=== PATIENT | male | born 1945 ===

== ENCOUNTER 2018-04-08 06:14 | Day surgery (SDC) | payer MEDICARE ==
[2018-04-08 06:55] VITALS: BMI 22.7
[2018-04-08] MEDS ORDERED: Propofol 10 mg/ml Inj (20 ML) ONE (07:56)
[2018-04-08] MEDS ORDERED: Phenylephrine 10 mg/ml Inj ONE (07:57)
[2018-04-08 08:41] VITALS: TEMP 98; O2SAT 99
[2018-04-08] MEDS ORDERED: Lactated Ringer's 1,000 ML IV SCH (08:45)
[2018-04-08 09:46] VITALS: BP 166/88; PULSE 68; RESP 14
== END 2018-04-08 10:10 | disposition home or self-care (01) ==
LOC: ENDO 06:14
PROVIDERS: ATTEND Specialist
DX: Z12.11 Encounter for screening for malignant neoplasm of colon (principal); C18.7 Malignant neoplasm of sigmoid colon; K64.8 Other hemorrhoids; K22.10 Ulcer of esophagus without bleeding; K44.9 Diaphragmatic hernia without obstruction or gangrene; E11.9 Type 2 diabetes mellitus without complications
CPT/HCPCS: 45380; 82948; 88305; J2001; J2370; J2704; J7040; J7120

== ENCOUNTER 2018-05-28 06:30 | Inpatient (IN) | payer MEDICARE ==
[2018-05-28] MEDS ORDERED: Propofol 10 mg/ml Inj (20 ML) ONE (07:30)
[2018-05-28] MEDS ORDERED: Rocuronium 10 mg/ml (5 ml) ONE ×2 (07:30→09:15)
[2018-05-28] MEDS ORDERED: Midazolam 2 MG/2 ML VIAL ONE (07:30)
--- NOTE | 2018-05-28 07:48 | CP.PCM.PN ---
Subjective - Date & Time of Evaluation Date of Evaluation: 05/28/18 Time of Evaluation: 07:15 - Subjective Subjective: Patient seen and examined at same day surgery. After obtaining surgical consent and explaining benefits and risks of surgery patient explicitly stated he refuses any blood products to be transfused. Patient stated "even if it means the difference between life or I refuse the transfusion of any kind of blood product". Patient wants to go forward with surgery, but does not want any blood transfusions. Objective - Vital Signs/Intake and Output Vital Signs (last 24 hours): Temp Pulse Resp BP Pulse Ox 98.3 F 78 18 186/98 H 98 05/28/18 06:45 05/28/18 06:45 05/28/18 06:45 05/28/18 06:45 05/28/18 06:45
[2018-05-28] MEDS ORDERED: Bupivacaine 0.5% 50 ML IJ ONE (08:00)
[2018-05-28] MEDS ORDERED: CeFAZolin 1 gm in NS 100ml IVPB ONE (08:30)
[2018-05-28] MEDS ORDERED: metroNIDAZOLE IV 500 mg/100 ml 500 MG/100 ML BAG ONE (08:33)
[2018-05-28] MEDS ORDERED: MetroNIDAZOLE 500 mg/100 ml IVPB ONE (08:40)
[2018-05-28] MEDS ORDERED: ePHEDrine 50 mg/ml Inj ONE (09:15)
[2018-05-28] MEDS ORDERED: Neostigmine Methylsulfate 3mg/3ml Syringe IV ONE (09:15)
[2018-05-28] MEDS ORDERED: Bupivacaine 0.25% 50 ML INJ IJ ONE (09:37)
[2018-05-28] MEDS ORDERED: Labetalol 5mg/ml (4ml) ONE (09:59)
--- NOTE | 2018-05-28 10:42 | PCM.SURG1 ---
Surgeon's Initial Post Op Note - Surgeon's Notes Surgeon: Dr. Howell Boom Master: Dr. Moralez PGY3, Dr. Ordaz PGY2 Type of Anesthesia: General Endo Pre-Operative Diagnosis: sigmoid CA Operative Findings: see operative report Post-Operative Diagnosis: see operative report Operation Performed: open left hemicolectomy with primary colo-colonic side to side anastomoses Specimen/Specimens Removed: sigmoid colon. peritoneal node Estimated Blood Loss: EBL {In ML}: 30 Blood Products Given: N/A Drains Used: No Drains Post-Op Condition: Good Date of Surgery/Procedure: 05/28/18 Time of Surgery/Procedure: 08:30
[2018-05-28] MEDS ORDERED: HYDROmorphone 0.5 mg/0.5 ml ISec IVP PRN (10:43)
[2018-05-28] MEDS ORDERED: Morphine 2 mg/ml ISec IVP PRN (10:44)
[2018-05-28] MEDS ORDERED: Lactated Ringer's 1,000 ML IV SCH (10:45)
[2018-05-28] MEDS ORDERED: Dextrose 50% SYRINGE Inj (50 ml) IV PRN (10:45)
[2018-05-28] MEDS ORDERED: Morphine 2 mg/ml ISec IVP ONE (11:25)
[2018-05-28] MEDS ORDERED: Morphine 4 mg/ml ISec ONE (11:29)
[2018-05-28] MEDS: Insulin Reg-MEDIUM-Coverage SC SCH ×2 (13:19→17:33)
[2018-05-28] MEDS: Lactated Ringer's 1,000 ML IV SCH (15:30)
[2018-05-28] MEDS ORDERED: ceFAZolin 1 gm in NS 1 GM/100 ML BAG IVPB ONE (16:00)
[2018-05-28] MEDS ORDERED: metroNIDAZOLE IV 500 mg/100 ml 500 MG/100 ML BAG IVPB ONE (16:00)
[2018-05-28] MEDS ORDERED: Influenza Vaccine 60 mcg/0.5 mL SYR (4YR UP) IM ONE (21:34)
[2018-05-28] MEDS ORDERED: Pneumococcal 23-Valent Vaccine IM ONE (21:34)
[2018-05-29] MEDS: Oxycodone/Acetaminophen 5/325 mg Tab PO PRN ×2 (04:07→22:37)
[2018-05-29 07:20] LABS: GRAN # 8.29 (1.4-6.5); HEMOGLOBIN 11.3 g/dL (14.0-18.0); LYMPH # 1.3 (1.2-3.4); LYMPH % 12.3 % (22.0-35.0); MEAN CORPUSCULAR HEMOGLOBIN 29.7 pg (25.0-35.0); MEAN CORPUSCULAR HGB CONC 33.3 g/dl (31.0-37.0); MEAN PLATELET VOLUME 9.3 fl (7.0-11.0); MONO % 9.7 % (1.0-6.0); RBC 3.81 10^6/uL (3.5-6.1); RED CELL DISTRIBUTION WIDTH 12.9 % (11.5-14.5); WHITE BLOOD COUNT 10.6 10^3/uL (4.5-11.0)
--- NOTE | 2018-05-29 07:56 | CP.PCM.PN ---
Subjective - Date & Time of Evaluation Date of Evaluation: 05/29/18 Time of Evaluation: 06:30 - Subjective Subjective: Patient seen and examined. No acute events over night. Tolerating liquid diet. Ambulating. Objective - Vital Signs/Intake and Output Vital Signs (last 24 hours): Temp Pulse Resp BP Pulse Ox 99.4 F 105 H 18 141/80 96 05/28/18 22:40 05/28/18 22:40 05/28/18 22:40 05/28/18 22:40 05/28/18 22:40 Intake and Output: 05/29/18 05/29/18 06:59 18:59 Intake Total 680 Output Total 1600 Balance -920 - Medications Medications: Current Medications Atorvastatin Calcium (Lipitor) 20 mg PO DAILY [facility] Dextrose (Dextrose 50% Inj) 0 ml IV STAT PRN; Protocol PRN Reason: Hypoglycemia Protocol Enoxaparin Sodium (Lovenox) 40 mg SC DAILY [facility]; Protocol Lactated Ringer's (Lactated Ringer's) 1,000 mls @ 75 mls/hr IV .[id number] [facility] Last Admin: 05/28/18 15:30 Dose: 75 mls/hr Insulin Human Regular (Humulin R Med) 0 units SC ACHS [facility]; Protocol Last Admin: 05/28/18 17:33 Dose: 8 units Metoclopramide HCl (Reglan) 10 mg IV ONCE PRN PRN Reason: Nausea/Vomiting Oxycodone/Acetaminophen (Percocet 5/325 Mg Tab) 1 tab PO Q4H PRN PRN Reason: Pain, moderate (4-7) Stop: 05/31/18 10:44 Last Admin: 05/29/18 04:07 Dose: 1 tab Ramipril (Altace) 2.5 mg PO DAILY [facility] - Labs Labs: 05/29/18 06:30 - Constitutional Appears: No Acute Distress - Head Exam Head Exam: NORMOCEPHALIC - Eye Exam Eye Exam: EOMI, Normal appearance - ENT Exam ENT Exam: Mucous Membranes Moist - Respiratory Exam Respiratory Exam: NORMAL BREATHING PATTERN - Cardiovascular Exam Cardiovascular Exam: +S1, +S2 - GI/Abdominal Exam GI & Abdominal Exam: Soft, Tenderness. absent: Distended, Firm, Rigid, Rebound Additional comments: mild tenderness over incision - Neurological Exam Neurological Exam: Alert, Awake, Oriented x3 - Psychiatric Exam Psychiatric exam: Normal Mood - Skin Skin Exam: Dry, Intact, Warm Assessment and Plan - Assessment and Plan (Free Text) Assessment: 72M s/p left hemicolectomy POD1 Plan: Full liquid diet ADAT OOB to chair Encourage ambulation PO analgesia prn DVT ppx D/w Dr. Dante Heath PGY3
[2018-05-29 07:57] LABS: BLOOD UREA NITROGEN 11 mg/dL (7-21); CALCIUM 8.9 mg/dL (8.4-10.5); GFR NON-AFRICAN AMERICAN > 60
--- NOTE | 2018-05-29 08:27 | OP ---
PROCEDURE DATE: 05/28/2018 PROCEDURE DONE: Left hemicolectomy with coloproctostomy anastomosis done primarily. SURGEON: Niko Howell MD MAIL CARRIER AND CLERK: Blanco Moralez DO INDICATIONS: This is a 72-year-old male who was found to have carcinoma of the sigmoid colon and elective resection was indicated. DESCRIPTION OF PROCEDURE: This patient was placed in the supine position and general endotracheal anesthesia was induced. Preoperative antibiotics were given. Lopez catheter and sequential pneumatic compression devices were placed. The abdomen was prepped and draped in the usual sterile fashion. A time-out was completed by identifying correct patient, procedure, site, positioning prior to beginning the procedure. A vertical midline incision was made from just below the umbilicus to just above the pubis. This was deepened through the subcutaneous tissues, and hemostasis was achieved with Bovie electrocautery. The linea alba was identified and incised, and the peritoneal cavity was entered. The patient was repositioned in a slight Trendelenburg position. The abdomen was then explored. A mass was palpated along the sigmoid colon. The tattoo portion that was done via the colonoscopy was re-visualized and palpated. The liver omentum and peritoneum were inspected for evidence of metastatic disease. Metastatic disease was not noted; however of note, there was presence of peritoneal node which was grasped via Allis clamps and resected via electrocautery and was sent for pathology. The descending colon was then inspected and retracted medially using a moist towel and self-retaining retractor. Using electrocautery as well as Metzenbaum scissors, the colon was free from its peritoneal attachments along the line of Toldt. The left ureter was identified and protected. Attention was then turned to mobilizing the left colon. The peritoneum covering was dissected via sharp dissection with Metzenbaum scissors. Once the left colon was mobilized, the bowel was then divided with a linear cutting stapler. The peritoneum on the medial aspect of the mesentery was then scored with electrocautery, and the vessels were ligated via cautery. The dissection proceeded to the inferior mesenteric artery which was identified and taken with electrocautery. The location of the left ureter was confirmed prior to dividing the inferior mesenteric artery. Dissection continued to sigmoid artery which was divided and cauterized. The rectosigmoid junction was mobilized and loose tissues and the presacral space were in good condition. The rectosigmoid junction was identified by explaining of the teniae coli at the level of the sacral promontory. The bowel was then transected at the junction using a SAM-60 as well as TA-55 stapler. The specimen was removed and sent to Pathology. Hemostasis was checked in the operative field. The two ends of the bowel were checked and found to be viable with excellent blood supply. Afterwards, the rectal stump and the proximal portion of the descending colon were brought side to side where an Endo SAM was used to create a primary anastomosis as well as the use of a TA stapler to close defect. The anastomosis site appeared patent, and the colonic tissue and right tissues appeared viable. Afterwards, the abdomen was thoroughly irrigated. There were no signs of free bubbles extending from the freshly made anastomosis. Afterwards, the appendix was noted to be lying proximal to the anastomosis at which point a decision was made to remove the appendix. The appendiceal mesentery was ligated, and the appendix was removed via TA 55 stapler. Afterwards, the abdomen was thoroughly irrigated, and the fluid was suctioned out. We then proceeded to close the abdomen with a double looped PDS suture. The abdominal fascia was approximated beautifully, and no complications were noted. Hemostasis was achieved both intra-abdominally as well as superficially at the site of an initial incision. Afterwards, the subcutaneous tissues were irrigated. Placement of On-Q catheters was made. The abdominal skin incision was closed using bryn. The patient was successfully extubated in the operating room and transferred to PACU with no complications. Blanco Moralez DO Niko Howell MD
[2018-05-29] MEDS: Insulin Reg-MEDIUM-Coverage SC SCH ×3 (08:30→19:22)
[2018-05-29] MEDS: Enoxaparin 40 mg Syringe SC SCH (09:48)
[2018-05-29] MEDS: Lactated Ringer's 1,000 ML IV SCH (11:36)
[2018-05-29] MEDS ORDERED: Bupivacaine 0.25% 50 ML INJ IJ ONE (16:05)
[2018-05-30] MEDS: Insulin Reg-MEDIUM-Coverage SC SCH ×4 (06:32→17:05)
[2018-05-30 08:13] VITALS: PULSE 96; RESP 18; TEMP 98.6; O2SAT 95
[2018-05-30 08:46] LABS: BASO # 0.01 K/mm3 (0.0-2.0); BASO % 0.1 % (0.0-3.0); EOS % 0.2 % (1.5-5.0); GRAN # 6.21 (1.4-6.5); GRAN % 70.9 % (50.0-68.0); HEMOGLOBIN 12.3 g/dL (14.0-18.0); LYMPH # 1.5 (1.2-3.4); LYMPH % 16.6 % (22.0-35.0); MEAN CELL VOLUME 90.6 fl (80.0-105.0); MEAN CORPUSCULAR HEMOGLOBIN 30.4 pg (25.0-35.0); MEAN CORPUSCULAR HGB CONC 33.6 g/dl (31.0-37.0); MEAN PLATELET VOLUME 9.8 fl (7.0-11.0); MONO # 1.1 (0.1-0.6); MONO % 12.2 % (1.0-6.0); RBC 4.04 10^6/uL (3.5-6.1); RED CELL DISTRIBUTION WIDTH 13.1 % (11.5-14.5); WHITE BLOOD COUNT 8.8 10^3/uL (4.5-11.0)
[2018-05-30] MEDS: Enoxaparin 40 mg Syringe SC SCH (09:05)
[2018-05-30 09:08] VITALS: BP 136/83
[2018-05-30 09:30] LABS: BLOOD UREA NITROGEN 13 mg/dL (7-21); CALCIUM 9.4 mg/dL (8.4-10.5); GFR NON-AFRICAN AMERICAN > 60
--- NOTE | 2018-05-30 13:36 | CP.PCM.DIS ---
Provider - Provider Date of Admission: 05/28/18 10:40 Attending physician: Niko Howell MD Primary care physician: Nate Clifford MD Consults: 05/28/18 10:48 Consult [Physician Consult] Routine Comment: Consulting Provider: Nate Clifford Consulting Physician: Nate Clifford Reason for Consult: Diabetes, HLD, known to you 05/28/18 10:49 Consult [Physician Consult] Routine Comment: Consulting Provider: Stephanie Burciaga Consulting Physician: Stephanie Burciaga Reason for Consult: S/P left hemicolectomy, Jehova's Witness Time Spent in preparation of Discharge (in minutes): 45 Hospital Course - Lab Results Lab Results: Most Recent Lab Values WBC 8.8 10^3/uL (4.5-11.0) 05/30/18 08:00 RBC 4.04 10^6/uL (3.5-6.1) 05/30/18 08:00 Hgb 12.3 g/dL (14.0-18.0) L 05/30/18 08:00 Hct 36.6 % (42.0-52.0) L 05/30/18 08:00 MCV 90.6 fl (80.0-105.0) 05/30/18 08:00 MCH 30.4 pg (25.0-35.0) 05/30/18 08:00 MCHC 33.6 g/dl (31.0-37.0) 05/30/18 08:00 RDW 13.1 % (11.5-14.5) 05/30/18 08:00 Plt Count 234 10^3/uL (120.0-450.0) 05/30/18 08:00 MPV 9.8 fl (7.0-11.0) 05/30/18 08:00 Gran % 70.9 % (50.0-68.0) H 05/30/18 08:00 Lymph % (Auto) 16.6 % (22.0-35.0) L 05/30/18 08:00 [place] % (Auto) 12.2 % (1.0-6.0) H 05/30/18 08:00 Eos % (Auto) 0.2 % (1.5-5.0) L 05/30/18 08:00 Baso % (Auto) 0.1 % (0.0-3.0) 05/30/18 08:00 Gran # 6.21 (1.4-6.5) 05/30/18 08:00 Lymph # (Auto) 1.5 (1.2-3.4) 05/30/18 08:00 [place] # (Auto) 1.1 (0.1-0.6) H 05/30/18 08:00 Eos # (Auto) 0.0 (0.0-0.7) 05/30/18 08:00 Baso # (Auto) 0.01 K/mm3 (0.0-2.0) 05/30/18 08:00 Sodium 135 mmol/L (132-148) 05/30/18 08:00 Potassium 4.0 mmol/L (3.6-5.0) 05/30/18 08:00 Chloride 97 mmol/L (98-107) L 05/30/18 08:00 Carbon Dioxide 31 mmol/L (21-33) 05/30/18 08:00 Anion Gap 11 (10-20) 05/30/18 08:00 BUN 13 mg/dL (7-21) 05/30/18 08:00 Creatinine 0.5 mg/dl (0.8-1.5) L 05/30/18 08:00 Est GFR ( Amer) > 60 05/30/18 08:00 Est GFR (Non-Af Amer) > 60 05/30/18 08:00 POC Glucose (mg/dL) 296 mg/dL (65-110) H 05/30/18 11:22 Random Glucose 214 mg/dL (70-110) H 05/30/18 08:00 Calcium 9.4 mg/dL (8.4-10.5) 05/30/18 08:00 Phosphorus 2.6 mg/dL (2.5-4.5) 05/29/18 06:30 Magnesium 2.0 mg/dL (1.7-2.2) 05/29/18 06:30 - Hospital Course Hospital Course: Patient was admitted via same day surgery for right hemicolectomy. Surgery proceeded without complications and a colo-colo side to side anastamosis was c ompleted, Patient had an uncomplicated postoperative course and was able to void, and ambulate on POD 1. on POD 2 patient was deemed stable to discharge home by Dr. Howell and was instructed to follow up with Dr. Howell to have bryn removed as well as with his primary care doctor within 3-5 days of discharge. Patient was given prescriptions for tramadol and colace prior to discharge. - Date & Time of H&P Date of H&P: 05/28/18 Time of H&P: 07:40 Discharge Exam - Head Exam Head Exam: ATRAUMATIC, NORMOCEPHALIC - Eye Exam Eye Exam: EOMI - ENT Exam ENT Exam: Mucous Membranes Moist - Respiratory Exam Respiratory Exam: NORMAL BREATHING PATTERN - Cardiovascular Exam Cardiovascular Exam: REGULAR RHYTHM - GI/Abdominal Exam GI & Abdominal Exam: Soft. absent: Distended, Guarding, Tenderness Additional comments: bryn in place , new clean clean dressing in place, incision is cdi - Extremities Exam Extremities exam: normal capillary refill, pedal pulses present - Neurological Exam Neurological exam: Alert, Oriented x3 - Psychiatric Exam Psychiatric exam: Normal Affect, Normal Mood - Skin Skin Exam: Dry, Intact, Normal Color, Warm Discharge Plan - Discharge Medications Prescriptions: Docusate Sodium [Colace] 100 mg PO DAILY PRN #30 capsule PRN Reason: Constipation traMADol [Ultram] 50 mg PO Q6 PRN 3 Days #12 tab PRN Reason: Pain, Moderate (4-7) - Follow Up Plan Condition: GOOD Disposition: HOME/ ROUTINE Instructions: Diabetes Diet , Foot Care for Diabetics, Diabetic Meal Planning , Diabetes and Diet Additional Instructions: Upon discharge from the hospital you will be given prescriptions for the following medications Tramadol 50 mg one pill every 6 hours for pain as needed Colace 100 mg as needed with tramadol to prevent constipation You will need to follow up with your primary care doctor within 3-5 days of leaving the hospital You will need to follow up with Dr. Howell in his office within 1 week. Please call the office Friday to make an appointment. If you have return of symptoms, increased abdominal pain, chest pain or any other concerning symptoms please return to the nearest ER immediately for evaluation. Referrals: Nate Clifford MD [Primary Care Provider] -
== END 2018-05-30 19:31 | disposition home or self-care (01) | DRG 331 ==
LOC: SDS 06:30 → 5RNO 10:40
PROVIDERS: ADMIT Surgery; ATTEND Surgery
PROC: 0DTG0ZZ Resection of Left Large Intestine, Open Approach (ICD-10-PCS; principal; 2018-05-28 07:30)
DX: C18.7 Malignant neoplasm of sigmoid colon (principal); E11.9 Type 2 diabetes mellitus without complications; I10 Essential (primary) hypertension

== ENCOUNTER 2018-06-23 12:11 | Day surgery (SDC) | payer MEDICARE ==
[2018-06-19 10:38] VITALS: BMI 21.9
[2018-06-23] MEDS ORDERED: Lidocaine 2% Inj (20ml) ONE (12:31)
[2018-06-23 13:20] LABS: BASO # 0.03 K/mm3 (0.0-2.0); BASO % 0.7 % (0.0-3.0); EOS # 0.3 (0.0-0.7); EOS % 6.1 % (1.5-5.0); GRAN # 2.1 (1.4-6.5); GRAN % 49.2 % (50.0-68.0); HEMOGLOBIN 11.8 g/dL (14.0-18.0); LYMPH # 1.5 (1.2-3.4); LYMPH % 34.4 % (22.0-35.0); MEAN CELL VOLUME 91.3 fl (80.0-105.0); MEAN CORPUSCULAR HGB CONC 32.9 g/dl (31.0-37.0); MEAN PLATELET VOLUME 9.1 fl (7.0-11.0); MONO # 0.4 (0.1-0.6); MONO % 9.6 % (1.0-6.0); RBC 3.93 10^6/uL (3.5-6.1); RED CELL DISTRIBUTION WIDTH 12.6 % (11.5-14.5); WHITE BLOOD COUNT 4.3 10^3/uL (4.5-11.0)
[2018-06-23 13:30] LABS: INR 1.06; PARTIAL THROMBOPLASTIN TIME 33.1 Seconds (25.1-36.5); PROTHROMBIN TIME 12.2 SECONDS (9.4-12.5)
[2018-06-23 13:38] LABS: BLOOD UREA NITROGEN 16 mg/dL (7-21); CALCIUM 9.8 mg/dL (8.4-10.5); GFR NON-AFRICAN AMERICAN > 60
[2018-06-23] MEDS ORDERED: Midazolam 2 MG/2 ML VIAL ONE ×2 (14:36→14:48)
[2018-06-23] MEDS ORDERED: Oxycodone/Acetaminophen 5/325 mg Tab PO PRN (15:24)
[2018-06-23] MEDS ORDERED: Sodium Chloride 0.45% 1,000 ML IV SCH (15:30)
[2018-06-23 16:28] VITALS: PULSE 93; RESP 18; TEMP 98; O2SAT 96
[2018-06-23 17:54] VITALS: BP 124/59
--- NOTE | 2018-06-23 19:21 | VASCULAR ---
PROCEDURE: Ultrasound and fluoroscopic right internal jugular venous access port. CLINICAL HISTORY: Colon carcinoma.Venous port for chemotherapy. PHYSICIAN(S): Mark Hussein M.D. TECHNIQUE: The relative risks and indications of the procedure were explained to the patient and consent obtained. The patient was placed supine on the arteriogram table and the right neck and chest prepped and draped in the usual sterile fashion. Conscious sedation monitoring was provided throughout the procedure by a nurse. Antibiotics were given prior to the procedure. Under direct ultrasound guidance, the right internal jugular vein was punctured with a micro-puncture set. A 0.035 angled Glidewire was advanced into the IVC. A 4 cm incision was made below the right clavicle and the pocket blunted dissected. A 8 Sinhala single-lumen catheter, 22 cm long, was advanced to the SVC/RA junction. The catheter was trimmed and attached to the port. The port aspirates and injects easily. The port was placed in the pocket and closed in 2 layers. The patient tolerated the procedure well. IMPRESSION: Ultrasound and fluoroscopically placed right internal jugular venous access port.
== END 2018-06-23 17:30 | disposition home or self-care (01) ==
LOC: SDS 12:11
PROVIDERS: ATTEND Radiology Vascular & Interventional Radiology
DX: Z45.2 Encounter for adjustment and management of vascular access device (principal); C18.9 Malignant neoplasm of colon, unspecified; I10 Essential (primary) hypertension; E11.9 Type 2 diabetes mellitus without complications; E78.5 Hyperlipidemia, unspecified; F20.9 Schizophrenia, unspecified; Z90.49 Acquired absence of other specified parts of digestive tract
CPT/HCPCS: 36415; 36561; 76937; 77001; 80048; 85025; 85610; 85730; 99152; C1769; C1788; J0360; J0690; J1644; J2250; J2405; J3010; J7030

== ENCOUNTER 2018-06-26 05:58 | Outpatient (CLI) | payer MEDICARE, OTHER | END 2018-06-26 05:59 | disposition home or self-care (01) | LOC: PET-BROA 05:58 | DX: C18.7 Malignant neoplasm of sigmoid colon (principal) ==